=== PATIENT | male | born 2000 | race African-American/Black ===

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

== ENCOUNTER 2020-10-12 22:57 | Emergency (ER) | payer OTHER, SELFPAY ==
[2020-10-13] MEDS ORDERED: cefTRIAXone\\ROCEPHIN 500 MG VIAL ONE (00:36)
[2020-10-14 19:53] LABS: Chlam.trachomatis by PCR,Urine Not Detected (NotDetected)
== END 2020-10-13 00:58 | disposition home or self-care (01) ==
LOC: ERS 22:57
DX: R36.9 Urethral discharge, unspecified (principal); G51.0 Bell's palsy
CPT/HCPCS: 87491; 87591; 96372; 99283; J0696

== ENCOUNTER 2021-05-08 13:25 | Emergency (ER) | payer OTHER, SELFPAY ==
[2021-05-08] MEDS ORDERED: cefTRIAXone\\ROCEPHIN 500 MG VIAL ONE (15:15)
[2021-05-08] MEDS ORDERED: Lidocaine 1% PF 5 ML VIAL ONE (15:15)
[2021-05-10 21:07] LABS: Chlam.trachomatis by PCR,Urine Not Detected (NotDetected)
== END 2021-05-08 15:40 | disposition home or self-care (01) ==
LOC: ERS 13:25
DX: A64 Unspecified sexually transmitted disease (principal); G51.0 Bell's palsy
CPT/HCPCS: 87491; 87591; 96372; 99283; J0696

== ENCOUNTER 2024-05-20 15:31 | Emergency (ER) | payer OTHER ==
[2024-05-20 16:03] LABS: Bacteria/HPF None Seen HPF (None Seen); Bilirubin Negative (Negative); Blood, Urine Negative (Negative); CAUTI Indications for Culture Dysuria,urgency,freq; Clarity Clear (Clear); Glucose, Urine (Dipstick) Normal (Negative); Ketone, Urine Negative (Negative); Leukocyte Negative Leu/uL (Negative); Nitrite Negative (Negative); Protein, Urine (Dipstick) 10 mg/dL (Neg-Trace); RBC/HPF None Seen HPF (0-3); Specific Gravity, Urine 1.022 (1.002-1.036); Squamous Epithelial None Seen HPF (0-3); WBC/HPF 0-3 HPF (0-3)
[2024-05-20 16:05] LABS: Urine Culture Reflex No No
[2024-05-20 16:56] LABS: Hematocrit 46.3 % (42.0-52.0); Mean Corpuscular HGB CONC 32.4 g/dL (32.0-36.0); Mean Corpuscular Hemoglobin 25.8 pg (27.0-31.0); Mean Corpuscular Volume 79.7 fL (78.0-98.0); Mean Platelet Volume 10.3 fL (7.4-10.4); Platelet Count 234 10x3/uL (130-400); RBC Distribution Width 13.8 % (11.5-14.5); Red Blood Cell (RBC) Count 5.81 mill/uL (4.70-6.10)
[2024-05-20 17:03] LABS: ALT (SGPT) 25 U/L (Less than 45); AST (SGOT) 26 U/L (11-34); Albumin 4.2 g/dL (3.1-4.5); Alkaline Phosphatase 93 U/L (40-110); Anion Gap 12 mmol/L (10-20); BUN (Urea Nitrogen) 8 mg/dL (8.9-20.6); Bilirubin, Total 0.7 mg/dL (0.3-1.2); CK (CPK) 92 U/L (30-200); Calc. Creatinine Clearance 0 mL/min (70-130); Calcium 9.1 mg/dL (7.8-10.44); Carbon Dioxide 26 mmol/L (22-29); Chloride 106 mmol/L (98-107); Estimated GFR 128; Globulin 3.8 g/dL (2.4-3.5); Glucose 98 mg/dL (70-105); Lipase 14 U/L (8-78); Potassium 3.5 mmol/L (3.5-5.1); Sodium 140 mmol/L (136-145)
[2024-05-20 17:26] LABS: Band 1 % (5-11); Eosinophils 4 % (0-10); Large Platelets 11.8 % (0-5); Lymphocytes 30 % (21-51); Monocytes 10 % (0-10); Neutrophil 46 % (42-75); Platelet Adequacy Comment Platelets Normal; RBC Morphology Within Normal Limits; Reactive Lymphocytes 9 % (0-10); Smudge Cells 5.9 %
== END 2024-05-20 18:20 | disposition home or self-care (01) ==
LOC: ERS 15:31
DX: A08.4 Viral intestinal infection, unspecified (principal)
CPT/HCPCS: 36415; 80053; 81001; 82550; 83690; 85025; 87428; 99283